=== PATIENT | female | born 1985 | race Caucasian/White ===

== ENCOUNTER → 2017-01-24 | Day surgery (SDC) | payer BC ==
[~2017-01-24] MED LIST: LIDOCAINE 2% PF Vial for OR 5 ML VIAL. ONE; OMEP40CA5 PO; ONDA4TAB7 PO; PROAIR HFA8.5 GM INH; PROPOFOL 40 ML IV ONE
[2017-01-24 10:08] VITALS: BP 126/76
[2017-01-24 11:26] LABS: NEG OBC UR NEG; POS OBC UR POS
--- NOTE | 2017-01-25 16:55 | PATHOLOGY ---
PATHOLOGY REPORT * * * * * * * * FINAL DIAGNOSIS: A. Small bowel biopsy: - No significant pathologic abnormalities. B. Gastric antral biopsy: - Congestion and slight chronic inflammation. C. Distal esophageal biopsy: - Segment of esophagogastric mucosa showing chronic inflammation. D. Terminal ileum biopsy: - Patchy mild to moderate ileitis without granulomas or specific features. E. Right colon biopsy: - No significant pathologic abnormalities. F. Left colon biopsies: - Focal mucosal congestion and recent hemorrhage. COMMENT: Sections of the small bowel biopsy reveal segments of small intestine and duodenal mucosa. Where best oriented, the mucosal villi appear normal. There are no sprue-like changes or significant inflammatory changes. Sections of the gastric antral biopsy show congestion and slight chronic inflammation. An immunoperoxidase stain for Helicobacter is obtained. No Helicobacter organisms are identified. Sections of the distal esophageal biopsy reveal a segment of esophagogastric mucosa showing congestion and focal chronic inflammation. The squamous esophageal mucosa is mildly hyperplastic. There is no evidence of Lea's change, dysplasia, or malignancy. Sections of the terminal ileum biopsy reveal segments of small intestine mucosa showing patchy mild to moderate active chronic inflammation and hyperplastic mucosal-associated lymphoid tissue. There are no sprue-like changes. There are no granulomas or specific features. Sections of the right colon biopsy reveal multiple segments of colonic mucosa containing a few mucosal associated lymphoid aggregates. Sections of the left colon biopsy reveal multiple segments of colonic mucosa containing a few mucosal associated lymphoid aggregates and showing focal congestion and recent hemorrhage within the lamina propria. There is no evidence of a chronic destructive colitis, lymphocytic colitis, or collagenous colitis. (JPM:mgr; 01/25/2017) Special Stain Performed: Immunoperoxidase stain for Helicobacter (B1) REPORT ELECTRONICALLY SIGNED BY: Xavier Kenny M.D. DATE/TIME: 01/25/2017 16:54 * * * * * * * * GROSS PATHOLOGY: A. The specimen is received in formalin, labeled "Brenda Javier and small bowel biopsy", are multiple perez soft tissue the aggregate measures 0.6 x 0.4 x 0.1 cm, entirely submitted in A1. B. The specimen is received in formalin, labeled " Brenda Javier and gastric antrum", are two perez soft tissue 0.2 and 0.4 cm in greatest dimension, entirely submitted in B1. C. Received in formalin labeled " Brenda Javier and distal esophagus biopsy," is a segment of perez soft tissue measuring 0.4 cm in maximum dimension. The specimen is submitted entirely in cassette C1. D. The specimen is received in formalin, labeled " Brenda Herrera and terminal ileum biopsy", are several perez soft tissue the aggregate measures 0.5 x 0.5 x 0.1 cm, entirely submitted in D1. E. The specimen is received in formalin, labeled " Brenda Herrera and right colon biopsy", are several perez soft tissue the aggregate measuring 1.0 x 0.6 x 0.2 cm, entirely submitted in E1. (SWS; 01/24/2017) F. The specimen is received in formalin, labeled " Brenda Herrera and left colon biopsy", are several perez soft tissue the aggregate measure 1.0 x 0.7 x 0.2 cm, entirely submitted in F1. INITIAL CPT CODE(S): A; 79959 B; 82666, 97043 C; 33157 D; 42920 E; 25825 F; 44427 Professional services performed [place] [facility] [place] [address] Technical services performed by [facility] at [address] [place] [address], [facility] [address] [address]. SPECIMEN(S) RECEIVED: A.Small bowel biopsy B.Gastric antrum biopsy C.Distal esophagus biopsy D.Terminal ileum biopsy E.Right colon biopsy F.Left colon biopsy CLINICAL HISTORY: Abdominal pain PATIENT: BRENDA HERRERA /AGE: 305/02/1985 (Age: 31) PATIENT #: [id number] ALT CASE #: SPECIMEN COLLECTION DATE: 01/24/2017 SPECIMEN RECEIVED DATE: 01/24/2017 [facility] - [address] [place] [address] - PHONE: [phone] * * * END OF REPORT * * *
== END | disposition home or self-care (01) ==
LOC: SURG 08:05
PROVIDERS: ATTEND Internal Medicine Gastroenterology
DX: K52.9 Noninfective gastroenteritis and colitis, unspecified (principal); K64.0 First degree hemorrhoids; K63.89 Other specified diseases of intestine; K62.89 Other specified diseases of anus and rectum; K21.0 Gastro-esophageal reflux disease with esophagitis; K31.89 Other diseases of stomach and duodenum; J45.909 Unspecified asthma, uncomplicated
CPT/HCPCS: 43239; 45380; 81025; 88305; 88342; J2704; J2001